=== PATIENT | male | born 1985 | race African-American/Black ===

== ENCOUNTER 2020-10-14 12:36 | Emergency (ER) | payer MEDICAID ==
[~2020-10-14] VITALS: Ht 185.4 cm; Wt 122.0 kg
[2020-10-14 12:40] VITALS: BP 130/74
[2020-10-14] MEDS ORDERED: TETANUS, DIPHTHERIA, PERTUSSIS VAC/PF 0.5ML (>7YR OLD) IM ONE (13:00)
[2020-10-14] MEDS ORDERED: IBUPROFEN 600MG TABLET PO ONE (13:00)
[2020-10-14] MEDS ORDERED: BACITRACIN ZINC OINT UDPKT TOP ONE (15:45)
[2020-10-14] MEDS ORDERED: LIDOCAINE HCL 1% 20ML VIAL (Pyxis) INJ INFIL ONE (15:45)
[2020-10-14] MEDS ORDERED: HYDR-4346 MT (16:43)
[2020-10-14] MEDS ORDERED: IBUP-2029 MT (16:43)
[2020-10-14] MEDS ORDERED: CEPH500C2 MT (16:44)
== END 2020-10-14 17:33 | disposition home or self-care (01) ==
LOC: ER 13:29
DX: S62.630A Displaced fracture of distal phalanx of right index finger, initial encounter for closed fracture (principal); X58.XXXA Exposure to other specified factors, initial encounter; Y93.89 Activity, other specified; Y92.89 Other specified places as the place of occurrence of the external cause; Y99.8 Other external cause status
CPT/HCPCS: 12001; 73140; 90471; 90715; 99283; A4217; J3490; Z7610

== ENCOUNTER 2020-10-16 07:38 | Emergency (ER) | payer MEDICAID ==
[~2020-10-16] VITALS: Ht 172.7 cm; Wt 100.0 kg
[~2020-10-16 07:38] MED LIST: CEPH500C2 MT; HYDR-4346 MT; IBUP-2029 MT
[2020-10-16 07:56] VITALS: BP 131/78
== END 2020-10-16 08:35 | disposition home or self-care (01) ==
LOC: ER 07:38
DX: Z48.00 Encounter for change or removal of nonsurgical wound dressing (principal); Z91.013 Allergy to seafood
CPT/HCPCS: 29130; 99283